=== PATIENT | female | born 1940 | race Caucasian/White ===

== ENCOUNTER 2020-06-14 16:25 | Inpatient (IN) | payer OTHER ==
[2020-06-14] MEDS ORDERED: KETOROLAC TROMETHAMINE 30 MG/1 ML VIAL ONE (16:47)
[2020-06-14 17:35] LABS: BASO % 0.9 % (0-2.0); EOS % 0.4 % (0-4.5); HEMATOCRIT 38.8 % (32.4-45.2); HEMOGLOBIN 13.2 GM/dL (10.7-15.3); MCH 30.6 pg (25.7-33.7); MEAN CELL VOLUME 89.9 fl (80-96); MEAN PLT VOLUME 7.8 fl (7.5-11.1); MONO % 6.9 % (3.8-10.2); NEUT % 79.8 % (42.8-82.8); PLATELET COUNT 344 K/MM3 (134-434); RBC 4.32 M/mm3 (3.60-5.2); RDW 13.8 % (11.6-15.6); WHITE BLOOD COUNT 9.8 K/mm3 (4.0-10.0)
[2020-06-14 17:52] LABS: CHLORIDE 104 mmol/L (98-107); SODIUM 139 mmol/L (136-145)
[2020-06-14 17:54] LABS: CALCIUM 10.3 mg/dL (8.5-10.1)
[2020-06-14 17:55] LABS: ALBUMIN 4.5 g/dl (3.4-5.0); ANION GAP 11 MMOL/L (8-16); BLOOD UREA NITROGEN 18.4 mg/dL (7-18); CO2 23 mmol/L (21-32); GLUCOSE,RANDOM 116 mg/dL (74-106); MAGNESIUM 1.8 mg/dL (1.8-2.4)
[2020-06-14 17:58] LABS: CREATININE 0.8 mg/dL (0.55-1.3); SGOT/AST 17 U/L (15-37); SGPT/ALT 19 U/L (13-61)
[2020-06-14 17:59] LABS: BILIRUBIN,TOTAL 0.4 mg/dL (0.2-1)
[2020-06-14 18:01] LABS: ALK PHOS 55 U/L (45-117)
[2020-06-14 21:19] LABS: EPI CELLS 10 /uL (0-25.1); HYALINE CASTS 0 /uL (0-3.1); PH,URINE 7.5 (5.0-8.0); URINE APPEARANCE CLEAR; URINE BACTERIA 18 /uL (0-1359); URINE BILIRUBIN NEGATIVE (NEGATIVE); URINE COLOR YELLOW; URINE GLUCOSE (UA) NEGATIVE (NEGATIVE); URINE KETONE NEGATIVE (NEGATIVE); URINE LEUK ESTERASE 1+ (NEGATIVE); URINE NITRITE NEGATIVE (NEGATIVE); URINE PROTEIN TRACE (NEGATIVE); URINE RBC 29 /uL (0-23.9); URINE UROBILINOGEN 0.2 mg/dL (0.2-1.0); URINE WBC 27 /uL (0-25.8)
[2020-06-14] MEDS ORDERED: ACETAMINOPHEN 1000 MG/100 ML VIAL (NON FORMULARY) IVPB ONE (23:29)
[2020-06-14] MEDS ORDERED: ACETAMINOPHEN INJECTION 100 ML IVPB ONE (23:31)
[2020-06-15] MEDS ORDERED: ACETAMINOPHEN 325 MG TABLET (FP) PO PRN (03:43)
[2020-06-15 05:43] VITALS: BMI 22.6
[2020-06-15 08:25] LABS: BASO % 0.7 % (0-2.0); EOS % 1.4 % (0-4.5); HEMATOCRIT 35.4 % (32.4-45.2); HEMOGLOBIN 12.1 GM/dL (10.7-15.3); LYMPH % 22.9 % (8-40); MCH 30.6 pg (25.7-33.7); MCHC 34.3 g/dl (32.0-36.0); MEAN CELL VOLUME 89.1 fl (80-96); MEAN PLT VOLUME 7.9 fl (7.5-11.1); MONO % 11.2 % (3.8-10.2); NEUT % 63.8 % (42.8-82.8); PLATELET COUNT 335 K/MM3 (134-434); RBC 3.97 M/mm3 (3.60-5.2); RDW 13.4 % (11.6-15.6); WHITE BLOOD COUNT 9.5 K/mm3 (4.0-10.0)
[2020-06-15 08:46] LABS: CALCIUM 9.2 mg/dL (8.5-10.1)
[2020-06-15 08:47] LABS: ALBUMIN 4.2 g/dl (3.4-5.0); BLOOD UREA NITROGEN 22.8 mg/dL (7-18)
[2020-06-15 08:49] LABS: CREATININE 0.7 mg/dL (0.55-1.3)
[2020-06-15 08:51] LABS: BILIRUBIN,TOTAL 0.7 mg/dL (0.2-1); TOT PROT 7.2 g/dl (6.4-8.2)
[2020-06-15] MEDS ORDERED: POTASSIUM CHLORIDE TABS 20 MEQ TABLET.ER (FP) PO ONE (09:03)
[2020-06-15] MEDS ORDERED: KETOROLAC TROMETHAMINE 30 MG/1 ML VIAL IM ONE ×2 (09:05→22:50)
[2020-06-15] MEDS: LIDOCAINE 5% TOPICAL PATCH TP SCH (09:59)
[2020-06-15] MEDS: ENOXAPARIN NA (PORCINE) 40 MG/0.4 ML DISP.SYRIN SQ SCH (09:59)
[2020-06-15] MEDS ORDERED: CEFTRIAXONE 1 GM in DEXTROSE 5%-WATER - 50 ML IVPB ONE (12:03)
[2020-06-15] MEDS ORDERED: DEXTROSE 5%-WATER - 50 ML IVPB ONE (12:46)
[2020-06-15] MEDS ORDERED: cefTRIAXone SODIUM 1 GM VIAL ONE (12:46)
[2020-06-15] MEDS: SOLIFENACIN SUCCINATE 5 MG TAB PO SCH (12:49)
[2020-06-15] MEDS: ACETAMINOPHEN 1000 MG/100 ML VIAL (NON FORMULARY) IVPB PRN ×2 (13:09→20:46)
[2020-06-15] MEDS: metoPROLOL SUCCINATE 25 MG TAB.SR.24H (FP) PO SCH (21:08)
[2020-06-15] MEDS ORDERED: LIDOCAINE PATCH REMOVAL MC SCH (22:00)
[2020-06-16] MEDS: ACETAMINOPHEN 1000 MG/100 ML VIAL (NON FORMULARY) IVPB PRN (07:01)
[2020-06-16 07:42] LABS: BASO % 1.2 % (0-2.0); EOS % 4.2 % (0-4.5); HEMATOCRIT 34.3 % (32.4-45.2); HEMOGLOBIN 11.9 GM/dL (10.7-15.3); LYMPH % 22.7 % (8-40); MCH 30.8 pg (25.7-33.7); MCHC 34.6 g/dl (32.0-36.0); MEAN PLT VOLUME 7.7 fl (7.5-11.1); MONO % 9.9 % (3.8-10.2); PLATELET COUNT 300 K/MM3 (134-434); RBC 3.85 M/mm3 (3.60-5.2); RDW 13.8 % (11.6-15.6); WHITE BLOOD COUNT 9.4 K/mm3 (4.0-10.0)
[2020-06-16 07:48] LABS: CALCIUM 9.1 mg/dL (8.5-10.1)
[2020-06-16 07:49] LABS: ALBUMIN 3.7 g/dl (3.4-5.0); BLOOD UREA NITROGEN 40.4 mg/dL (7-18); MAGNESIUM 1.9 mg/dL (1.8-2.4)
[2020-06-16 07:52] LABS: BILIRUBIN,TOTAL 0.4 mg/dL (0.2-1); CREATININE 0.9 mg/dL (0.55-1.3)
[2020-06-16 07:54] LABS: TOT PROT 6.8 g/dl (6.4-8.2)
[2020-06-16] MEDS ORDERED: ATORVASTATIN CA 20 MG TABLET (FP) PO SCH ×2 (10:00→22:00)
[2020-06-16] MEDS ORDERED: FENOFIBRIC ACID 135 MG CAP PO SCH (10:00)
[2020-06-16] MEDS ORDERED: PT OWN MED DRAWER 7, Y5N ONE (10:01)
[2020-06-16] MEDS: LIDOCAINE 5% TOPICAL PATCH TP SCH (10:06)
[2020-06-16] MEDS: metoPROLOL SUCCINATE 25 MG TAB.SR.24H (FP) PO SCH (10:07)
[2020-06-16] MEDS: ENOXAPARIN NA (PORCINE) 40 MG/0.4 ML DISP.SYRIN SQ SCH (10:07)
[2020-06-16] MEDS: SOLIFENACIN SUCCINATE 5 MG TAB PO SCH (10:07)
[2020-06-16] MEDS ORDERED: CEFTRIAXONE 1 GM in DEXTROSE 5%-WATER - 50 ML IVPB ONE (14:08)
[2020-06-16] MEDS ORDERED: DEXTROSE 5%-WATER - 50 ML IVPB ONE (14:28)
[2020-06-16] MEDS ORDERED: cefTRIAXone SODIUM 1 GM VIAL ONE (14:28)
[2020-06-16 15:24] VITALS: BP 136/65; PULSE 68; TEMP 99.7
== END 2020-06-16 15:38 | disposition home health service (06) | DRG 92 ==
LOC: JER 16:25 → JERBED 19:40 → J6S 06-15 01:01
PROVIDERS: ADMIT Hospitalist; ATTEND Internal Medicine
DX: G47.51 Confusional arousals (principal); F05 Delirium due to known physiological condition; N39.0 Urinary tract infection, site not specified; I10 Essential (primary) hypertension; E78.5 Hyperlipidemia, unspecified; M54.41 Lumbago with sciatica, right side; E83.52 Hypercalcemia; N32.81 Overactive bladder
CPT/HCPCS: 36415; 70450-TC; 71045-TC-FY; 72125-TC; 72170-TC-FY; 73552-TC-RT-FY; 80053; 80307; 81003; 82550; 82553; 82607; 83036; 83735; 84100; 84443; 84484; 85025; 86780; 87086; 87186; 93005; 93010; 93971-TC; 97116-GP; 97162-GP; 99285-25; C9803; J0131; U0003; U0005

== ENCOUNTER 2021-09-04 06:04 | Day surgery (SDC) | payer BC ==
[2021-09-04] MEDS ORDERED: TRANEXAMIC ACID 1000 MG/10 ML VIAL IVPUSH ONE (06:41)
[2021-09-04] MEDS ORDERED: VANCOMYCIN 1,000 MG VIAL (RESTRICTED TO ID ONLY) ONE (07:04)
[2021-09-04] MEDS ORDERED: ceFAZolin SODIUM 1 GM VIAL ONE (07:04)
[2021-09-04 07:07] VITALS: BMI 20.8
[2021-09-04] MEDS ORDERED: MIDAZOLAM HCL 2 MG/2 ML SINGLE DOSE VIAL ONE ×2 (07:32→08:23)
[2021-09-04] MEDS ORDERED: BUPIVACAINE HCL/PF 0.5% (5MG/ML) 10 ML VIAL ONE (07:33)
[2021-09-04] MEDS ORDERED: FENTANYL CITRATE/PF 50 MCG/ML VIAL ONE (07:33)
[2021-09-04] MEDS ORDERED: BUPIVACAINE HCL/PF 2.5 MG/ML - 30 ML VIAL IJ ONE (07:33)
[2021-09-04] MEDS ORDERED: DEXMEDETOMIDINE HCL 200 MCG/2 ML IVPB ONE (08:00)
[2021-09-04] MEDS ORDERED: CEFAZOLIN 2 GM in DEXTROSE 5%-WATER - 50 ML IVPB ONE (08:00)
[2021-09-04] MEDS ORDERED: CELECOXIB 200 MG CAPSULE PO ONE (08:00)
[2021-09-04] MEDS ORDERED: MAG HYDROX/AL HYDROX/SIMETH 30 ML UNIT-DOSE CUP PO PRN (08:05)
[2021-09-04] MEDS ORDERED: ONDANSETRON 4 MG/2 ML VIAL IVPUSH PRN ×2 (08:05→10:52)
[2021-09-04] MEDS ORDERED: LACTATED RINGERS SOLUTION 1,000 ML IV SCH (08:15)
[2021-09-04] MEDS ORDERED: PROPOFOL 20 ML ONE (08:25)
[2021-09-04] MEDS ORDERED: OXYBUTYNIN CHLORIDE 5 MG PO SCH (10:00)
[2021-09-04] MEDS ORDERED: PATIENT'S OWN MEDICATION (NON-FORMULARY) (Fenofibrate [Fenofibrate] 150 MG Capsule) PO SCH (10:00)
[2021-09-04] MEDS ORDERED: PROMETHAZINE HCL 25 MG/1 ML VIAL IVPUSH PRN (10:52)
[2021-09-04] MEDS: SENNOSIDES/DOCUSATE COMBO (SENNA PLUS) TABLET (UD) PO SCH ×2 (11:59→21:31)
[2021-09-04] MEDS: oxyCODONE HCL 5 MG TABLET PO PRN ×3 (11:59→21:31)
[2021-09-04] MEDS: FENOFIBRIC ACID 135 MG CAP PO SCH (12:01)
[2021-09-04] MEDS: MULTIVITAMINS (DAILY MVI) TABLET (FP) PO SCH (12:02)
[2021-09-04] MEDS: PANTOPRAZOLE 40 MG TABLET PO SCH (12:37)
[2021-09-04] MEDS: ACETAMINOPHEN 500 MG TABLET (FP) PO SCH ×2 (12:37→17:18)
[2021-09-04] MEDS ORDERED: DEXTROSE 5%-WATER 100 ML IVPB ONE ×2 (16:13→23:48)
[2021-09-04] MEDS ORDERED: CEFAZOLIN SODIUM 2 GM VIAL ONE ×2 (16:14→23:48)
[2021-09-04] MEDS: CEFAZOLIN SODIUM 2 GM in DEXTROSE 5%-WATER 100 ML IVPB SCH (16:36)
[2021-09-04] MEDS: metoPROLOL SUCCINATE 25 MG TAB.SR.24H (FP) PO SCH (16:38)
[2021-09-04] MEDS: ATORVASTATIN CA 20 MG TABLET (FP) PO SCH (21:31)
[2021-09-05] MEDS: CEFAZOLIN SODIUM 2 GM in DEXTROSE 5%-WATER 100 ML IVPB SCH
[2021-09-05] MEDS: ACETAMINOPHEN 500 MG TABLET (FP) PO SCH ×4 (00:01→17:49)
[2021-09-05] MEDS: oxyCODONE HCL 5 MG TABLET PO PRN ×3 (00:46→17:48)
[2021-09-05] MEDS: metoPROLOL SUCCINATE 25 MG TAB.SR.24H (FP) PO SCH ×2 (06:46→16:24)
[2021-09-05] MEDS: ASPIRIN 325 MG TABLET PO SCH (07:46)
[2021-09-05 08:29] LABS: MCH 30.7 pg (25.7-33.7); MCHC 34.3 g/dl (32.0-36.0); MEAN CELL VOLUME 89.5 fl (80-96); MEAN PLT VOLUME 7.5 fl (7.5-11.1); PLATELET COUNT 337.9 10^3/uL (134-434); RBC 3.57 10^6/uL (3.60-5.2); RDW 14.4 % (11.6-15.6); WHITE BLOOD COUNT 11.9 10^3/uL (4.0-10.8)
[2021-09-05] MEDS: SENNOSIDES/DOCUSATE COMBO (SENNA PLUS) TABLET (UD) PO SCH ×2 (09:33→21:30)
[2021-09-05] MEDS: MULTIVITAMINS (DAILY MVI) TABLET (FP) PO SCH (09:33)
[2021-09-05] MEDS: PANTOPRAZOLE 40 MG TABLET PO SCH (09:34)
[2021-09-05] MEDS: FENOFIBRIC ACID 135 MG CAP PO SCH (09:34)
[2021-09-05] MEDS: SOLIFENACIN SUCCINATE 5 MG TAB PO SCH (09:34)
[2021-09-05] MEDS: ATORVASTATIN CA 20 MG TABLET (FP) PO SCH (21:30)
[2021-09-06] MEDS: oxyCODONE HCL 5 MG TABLET PO PRN ×4 (00:34→22:09)
[2021-09-06] MEDS: ACETAMINOPHEN 500 MG TABLET (FP) PO SCH ×4 (00:35→17:36)
[2021-09-06] MEDS: metoPROLOL SUCCINATE 25 MG TAB.SR.24H (FP) PO SCH ×2 (06:34→17:35)
[2021-09-06 07:53] LABS: HEMATOCRIT 29.9 % (32.4-45.2); HEMOGLOBIN 10.3 G/dL (10.7-15.3); MCH 30.8 pg (25.7-33.7); MCHC 34.4 g/dl (32.0-36.0); MEAN CELL VOLUME 89.6 fl (80-96); MEAN PLT VOLUME 7.5 fl (7.5-11.1); PLATELET COUNT 324.2 10^3/uL (134-434); RBC 3.34 10^6/uL (3.60-5.2); RDW 14.5 % (11.6-15.6); WHITE BLOOD COUNT 13.4 10^3/uL (4.0-10.8)
[2021-09-06] MEDS: FENOFIBRIC ACID 135 MG CAP PO SCH (09:11)
[2021-09-06] MEDS: SOLIFENACIN SUCCINATE 5 MG TAB PO SCH (09:11)
[2021-09-06] MEDS: MULTIVITAMINS (DAILY MVI) TABLET (FP) PO SCH (09:11)
[2021-09-06] MEDS: ASPIRIN 325 MG TABLET PO SCH (09:11)
[2021-09-06] MEDS: PANTOPRAZOLE 40 MG TABLET PO SCH (09:12)
[2021-09-06] MEDS: SENNOSIDES/DOCUSATE COMBO (SENNA PLUS) TABLET (UD) PO SCH ×2 (09:14→22:08)
[2021-09-06] MEDS: ATORVASTATIN CA 20 MG TABLET (FP) PO SCH (22:09)
[2021-09-07] MEDS: metoPROLOL SUCCINATE 25 MG TAB.SR.24H (FP) PO SCH (06:21)
[2021-09-07] MEDS: ACETAMINOPHEN 500 MG TABLET (FP) PO SCH ×2 (06:21)
[2021-09-07] MEDS: ASPIRIN 325 MG TABLET PO SCH (08:04)
[2021-09-07] MEDS: SENNOSIDES/DOCUSATE COMBO (SENNA PLUS) TABLET (UD) PO SCH (09:12)
[2021-09-07] MEDS: MULTIVITAMINS (DAILY MVI) TABLET (FP) PO SCH (09:12)
[2021-09-07] MEDS: SOLIFENACIN SUCCINATE 5 MG TAB PO SCH (09:12)
[2021-09-07] MEDS: PANTOPRAZOLE 40 MG TABLET PO SCH (09:12)
[2021-09-07] MEDS: FENOFIBRIC ACID 135 MG CAP PO SCH (09:12)
[2021-09-07 09:57] VITALS: BP 124/70; PULSE 70; RESP 16; TEMP 98
== END 2021-09-07 11:20 | disposition home health service (06) ==
LOC: FASUSAT 06:04 → EDSTATUS 08:00 → FM/S 11:14 → FASUSAT 09-07 11:20
PROVIDERS: ATTEND Orthopaedic Surgery
PROC: 8E0YXBZ Computer Assisted Procedure of Lower Extremity (ICD-10-PCS; 2021-09-04)
PROC: 8E0Y0CZ Robotic Assisted Procedure of Lower Extremity, Open Approach (ICD-10-PCS; 2021-09-04)
PROC: 0SR90JA Replacement of Right Hip Joint with Synthetic Substitute, Uncemented, Open Approach (ICD-10-PCS; principal; 2021-09-04 08:31)
DX: M16.11 Unilateral primary osteoarthritis, right hip (principal)
CPT/HCPCS: 20985; 27130; C1776; S2900; 36415; 73502-TC-RT-FY; 85027; 88305-TC; 88311-TC; 94760; 97010-GP; 97116-GP; 97162-GP; C9803-CS; U0003; U0005

== ENCOUNTER 2023-12-10 18:56 | Emergency (ER) | payer BC ==
[2023-12-10 19:04] VITALS: BP 176/81; PULSE 89; RESP 16; TEMP 98.1; BMI 26.4
[2023-12-10] MEDS ORDERED: AMOX TR/POT CLAV 875MG/125MG TABLETS (FP) ONE (19:21)
[2023-12-10] MEDS: AMOX TR/POT CLAV 875MG/125MG TABLETS (FP) PO ONE (19:22)
== END 2023-12-10 19:55 | disposition home or self-care (01) ==
LOC: FER 18:56
DX: S00.83XA Contusion of other part of head, initial encounter (principal); W54.0XXA Bitten by dog, initial encounter
CPT/HCPCS: 99283-25